=== PATIENT | male | born 1970 | race African-American/Black ===

== ENCOUNTER 2022-06-23 15:13 | Emergency (ER) | payer OTHER, SELFPAY ==
[2022-06-23 15:36] VITALS: BP 177/115; PULSE 78; RESP 12; TEMP 37; O2SAT 99
--- NOTE | 2022-06-23 15:48 | ED.EYEPROB ---
HPI - Eye Problem General Chief complaint: Eye Problems Stated complaint: Right Ear Irritation Time Seen by Provider: 06/23/22 15:50 Source: patient, RN notes reviewed and old records reviewed Mode of arrival: ambulatory Limitations: no limitations History of Present Illness HPI Narrative: 51-year-old male presents to [facility] with complaints of right eye irritation for 2 days. Has been traveling from [place], moving to the area for couple of months for work. Patient states the last couple days his diets been very poor, started yesterday with right ear pain, redness, tearing and was crusted over this morning. Has gradually moved to the left eye. Describes his eyes as being very itchy Denies trauma. Does not were contacts. Related Data Home Medications Medication Instructions Recorded Confirmed rosuvastatin 10 mg tablet (Crestor) 10 mg PO DAILY 06/23/22 06/23/22 Allergies Allergy/AdvReac Type Severity Reaction Status Date / Time Penicillins Allergy Other Verified 06/23/22 15:58 IMITATION CRABMEAT Allergy Other Uncoded 06/23/22 15:58 Review of Systems Review of Systems: All systems reviewed & are unremarkable except as noted in HPI and below Constitutional: Constitutional: Reports no additional constitutional complaints Eyes: Eyes: Reports as per HPI, Denies exophthalmos, Denies change in vision, Reports irritation and Reports itchy eyes ENT: Reports system reviewed and no additional complaints, except as documented Cardiovascular: Cardiovascular: Reports no additional cardiovascular complaints, Denies chest pain and Denies dyspnea Respiratory: Respiratory: Reports no additional respiratory complaints, Denies chest congestion, Denies cough and Denies dyspnea Gastrointestinal: Gastrointestinal: Reports no additional gastrointestinal complaints, Denies abdominal pain, Denies nausea and Denies vomiting Musculoskeletal: Musculoskeletal: Reports no additional musculoskeletal complaints Integumentary/Breasts: Skin/Breast: Reports system reviewed and no additional complaints, except as docu Neurologic: Reports system reviewed and no additional complaints, except as documented Psychiatric: Psychiatric: Reports no additional psychiatric complaints Allergic/Immunologic: Allergic/Immunologic: Reports no additional allergic/immunologic complaints PMFSH Comments At the time of my signature, I reviewed and agree with the nursing past medical, surgical, social, and family history. There is no relevant family history pertinent to the patient complaint. Exam Const: General: cooperative, healthy appearing, comfortable, no acute distress, well developed, alert and well nourished Nutritional Appearance: well nourished Orientation/consciousness: patient oriented x3 Limitations: no limitations HENMT: Head: normal to inspection Ears: hearing grossly normal bilaterally, external ears normal, TM's normal bilaterally and EAC's normal Face/Nose/Sinus: Normal external nose present, Normal nares present, Normal nasal mucous membranes and turbinates present and normal facial exam Face and sinus: normal facial exam Mouth: Yes Normal oral and palatal mucosa present, Yes lip normal and Yes moist mucous membranes Throat: posterior oropharynx normal and uvula midline Eyes: General: appearance normal, both eyes and all related structures Visual Coulter: normal visual coulter by confrontation Alignment and Position: alignment normal Periorbital: periorbital findings normal Eyelids: eyelid abnormality right lower eyelid erythema and lid margins crusty/scaly and left lower eyelid erythema Conjunctivae: conjunctivae normal Cornea: corneas abnormal (Erythema bilateral) Pupils: Equal, round and reactive pupils present EOM: EOMs intact bilaterally Neck: Neck: normal visual inspection, full ROM, no lymphadenopathy and no meningeal signs Chest: Chest palpation & inspection: normal inspection of the chest Resp: Effort & Inspection: normal re
== END 2022-06-23 16:09 | disposition home or self-care (01) ==
PROVIDERS: Emergency Provider Nurse Practitioner
DX: H10.9 Unspecified conjunctivitis (principal)
CPT/HCPCS: 99203; G0463